=== PATIENT | male | born 1940 | race Caucasian/White ===

== ENCOUNTER 2016-11-05 00:02 | Emergency (ER) | payer MEDICARE, OTHER ==
[~2016-11-05] VITALS: Ht 177.8 cm; Wt 104.3 kg
[2016-11-05 01:06] VITALS: BP 149/69
== END 2016-11-05 02:49 | disposition home or self-care (01) ==
LOC: EDBD 00:02 → ER 00:02
DX: R04.0 Epistaxis (principal); I10 Essential (primary) hypertension; E78.5 Hyperlipidemia, unspecified
CPT/HCPCS: 30901